=== PATIENT | male | born 1960 | race Caucasian/White ===

== ENCOUNTER → 2016-04-21 | Outpatient (CLI) | payer OTHER ==
--- NOTE | 2016-04-22 00:06 | DX ---
Lumbar Spine, Two Views History: Follow up fusion. Comparison: Lumbar spine March 11, 2016. Findings: Bilateral transpedicular screw and dixie fusion at L5-S1 is stable. The hardware is intact, without evidence of loosening. Intervertebral hardware at L5-S1 is stable. L5 laminectomy is again noted. Trace anterolisthesis of L5 on S1 is stable. Mild vertebral spondylosis throughout the visu alized spine is stable. No fracture is identified. Impression: Stable L5-S1 fusion.
== END ==
LOC: FIMAGING 14:35
PROVIDERS: ATTEND Physician Assistant
DX: Z09 Encounter for follow-up examination after completed treatment for conditions other than malignant neoplasm (principal); Z98.1 Arthrodesis status

== ENCOUNTER → 2018-01-09 | Outpatient (CLI) | payer OTHER | LOC: FIMAGING 18:27 | PROVIDERS: ATTEND Neurological Surgery | DX: M48.07 Spinal stenosis, lumbosacral region (principal) ==

== ENCOUNTER 2018-01-24 06:17 | Inpatient (IN) | payer OTHER ==
[2018-01-24] MEDS ORDERED: ceFAZolin 2 GM/DEXTROSE 100 ML IV ONE (06:28)
[2018-01-24] MEDS ORDERED: GABAPENTIN 300 MG CAP PO ONE (06:28)
[2018-01-24] MEDS ORDERED: ACETAMINOPHEN 500 MG TAB PO ONE (06:28)
[2018-01-24] MEDS ORDERED: LR 1,000 ML IV ONE (06:30)
[2018-01-24] MEDS ORDERED: LIDOCAINE 1% 2 ML INJ ID PRN (06:30)
--- NOTE | 2018-01-24 06:38 | PDHPUP ---
History & Physical Update H&P update statement: This history and physical update is based on an assessment of the patient which was completed after admission or registration (within 24 hours), but prior to the surgery/procedure. H&P update: H&P reviewed & patient examined, no change in patient's condition since H&P completed
[2018-01-24] MEDS ORDERED: LIDOCAINE 1% 2 ML INJ ONE (06:39)
[2018-01-24] MEDS ORDERED: BISACODYL 10 MG SUPP PR PRN (07:12)
[2018-01-24] MEDS ORDERED: LACTULOSE 20 GM/30 ML UDCUP PO PRN (07:12)
[2018-01-24] MEDS ORDERED: MAGNESIUM HYDROXIDE 30 ML UDCUP PO PRN (07:12)
[2018-01-24] MEDS ORDERED: POLYETHYLENE GLYCOL 3350 17 GM PKT PO PRN (07:12)
[2018-01-24] MEDS ORDERED: ONDANSETRON 4 MG/2 ML VIAL IVP PRN ×2 (07:12→10:24)
[2018-01-24] MEDS ORDERED: ONDANSETRON DISINTEGRATING 4 MG TAB PO PRN (07:12)
[2018-01-24] MEDS ORDERED: METHOCARBAMOL 750 MG TAB PO PRN (07:12)
[2018-01-24] MEDS ORDERED: diphenhydrAMINE 25 MG CAP PO PRN (07:12)
[2018-01-24] MEDS ORDERED: HYDROmorphONE/DILAUDID 1 MG/ML INJ IVP PRN (07:12)
[2018-01-24] MEDS ORDERED: NS 1,000 ML IV SCH (07:15)
[2018-01-24] MEDS ORDERED: THROMBIN (BOVINE) 5,000 UNIT VIAL TP ONE (07:38)
[2018-01-24] MEDS ORDERED: BUPIVACAINE 0.25% 30 ML SDV ONE (07:38)
[2018-01-24] MEDS ORDERED: CHLORHEXIDINE GLUC HIBICLENS 118 ML BTL TP ONE (07:38)
[2018-01-24] MEDS ORDERED: DEPO METHYLPREDNISOLONE 40 MG/ML SDV ONE (07:38)
[2018-01-24] MEDS ORDERED: BACITRACIN 50,000 UNITS/10 ML SYR IRR ONE (07:39)
[2018-01-24] MEDS ORDERED: EPINEPHrine 1 MG/ML INJ ONE (07:39)
[2018-01-24] MEDS ORDERED: MIDAZOLAM 2 MG/2 ML VIAL IVP ONE (08:04)
[2018-01-24] MEDS ORDERED: MIDAZOLAM 2 MG/2 ML VIAL ONE (08:06)
--- NOTE | 2018-01-24 08:09 | PDANEPAE ---
ANE History of Present Illness Lumbar hardware removal Laminectomy L4 5 ANE Past Medical History - Cardiovascular History Hx Hypertension: No Hx Arrhythmias: No Hx Chest Pain: No Hx Coronary Artery / Peripheral Vascular Disease: No Hx CHF / Valvular Disease: No Hx Palpitations: No - Pulmonary History Hx COPD: No Hx Asthma/Reactive Airway Disease: No Hx Recent Upper Respiratory Infection: No Hx Oxygen in Use at Home: No Hx Sleep Apnea: Yes Sleep Apnea Screening Result - Last Documented: Positive Pulmonary History Comment: CHARO USES CPAP INSTRUCTED TO BRING DOS - Neurologic History Hx Cerebrovascular Accident: No Hx Seizures: No Hx Dementia: No - Endocrine History Hx Diabetes: No Hypothyroid: No Hyperthyroid: No Obesity: mild - Renal History Hx Renal Disorders: No - Liver History Hx Hepatic Disorders: No - Neurological & Psychiatric Hx Hx Neurological and Psychiatric Disorders: Yes Neurological / Psychiatric History Comment: BELLS PALSY X3 - Cancer History Hx Cancer: No - Congenital Disorder History Hx Congenital Disorders: No - GI History Hx Gastrointestinal Disorders: Yes Gastrointestinal History Comment: CELIACS DISEASE - Other Health History Other Health History: RT HIP AND LEG - Chronic Pain History Chronic Pain: Yes (RT HIP AND LEG) - Surgical History Prior Surgeries: TFLI 01/2016. 2008 HERNIA SURGERY. 2011 CHOLECYSECTOMY ANE Review of Systems Review of Systems: - Exercise capacity METS (RN): 4 METS ANE Patient History - Allergies Allergies/Adverse Reactions: gluten Allergy (Verified 01/02/18 15:58) CELIAC DX - Home Medications Home Medications: Calcium/Magnesium/Vit D3 [Calcium 500 mg Tablet] 1 each PO DAILY 01/27/16 [Last Taken 01/17/18] Cholecalciferol (Vitamin D3) [Vitamin D3] 5,000 unit PO DAILY 01/27/16 [Last Taken 01/17/18] - NPO status NPO Since - Liquids (Date): 01/23/18 NPO Since - Liquids (Time): 23:00 NPO Since - Solids (Date): 01/23/18 NPO Since - Solids (Time): 22:30 - Anes Hx Anes Hx: no prior problems - Smoking Hx Smoking Status: Never smoked Marijuana use: No - Alcohol Use Alcohol Use: Occasionally - Family Anes Hx Family Anes Hx: none ANE Labs/Vital Signs - Vital Signs Blood Pressure: 137/84 Heart Rate: 73 Respiratory Rate: 10 O2 Sat (%): 94 Height: 180.34 cm Weight: 104.326 kg ANE Physical Exam - Airway Mallampati Score: Class 3 Mouth exam: normal dental/mouth exam - Pulmonary Pulmonary: no respiratory distress, no rales or rhonchi - Cardiovascular Cardiovascular: regular rate and rhythym, no murmur, rub, or gallop - ASA Status ASA Status: II ANE Anesthesia Plan Anesthesia Plan: general endotracheal anesthesia Specialized Airway: video laryngoscope
[2018-01-24] MEDS ORDERED: PROPOFOL/EMULSION 500 MG/50 ML BOTTLE IV ONE ×2 (08:12)
[2018-01-24] MEDS ORDERED: fentaNYL 250 MCG/5 ML INJ ONE (08:12)
[2018-01-24] MEDS ORDERED: LIDOCAINE 2% 5 ML SDV ONE (08:16)
[2018-01-24] MEDS ORDERED: ROCURONIUM 50 MG/5 ML VIAL ONE (08:16)
[2018-01-24] MEDS ORDERED: GLYCOPYRROLATE 0.2 MG/1 ML VIAL ONE (08:16)
[2018-01-24] MEDS ORDERED: SUCCINYLCHOLINE CHLORIDE 200 MG/10 ML SYR IVP ONE (08:19)
[2018-01-24] MEDS ORDERED: DEXAMETHASONE 4 MG/ML VIAL ONE (09:19)
[2018-01-24] MEDS ORDERED: fentaNYL 100 MCG/2 ML INJ ONE ×2 (09:25→10:32)
[2018-01-24] MEDS ORDERED: DIAZEPAM 5 MG/ML 1 ML SYR IVP PRN (10:24)
[2018-01-24] MEDS ORDERED: fentaNYL 100 MCG/2 ML INJ IVP PRN (10:24)
[2018-01-24] MEDS ORDERED: HYDROmorphONE/DILAUDID 2 MG/ML INJ IVP PRN (10:24)
[2018-01-24] MEDS ORDERED: oxyCODONE IR 5 MG TAB PO PRN (10:24)
[2018-01-24] MEDS ORDERED: HYDROCODONE/APAP 5/325 TAB PO PRN (10:24)
[2018-01-24] MEDS ORDERED: ALBUTEROL 3 ML DEYVIAL IH PRN (10:24)
[2018-01-24] MEDS ORDERED: PROMETHAZINE HCL 25 MG/ML INJ IVP PRN (10:24)
[2018-01-24] MEDS ORDERED: NALOXONE HCL 0.4 MG/ML INJ IVP PRN (10:24)
--- NOTE | 2018-01-24 11:26 | GOP ---
DATE OF OPERATION: 01/24/2018 SURGEON: Miguel Herrera MD NEUROSURGEON: Miguel Herrera MD CLAM GRADER: Tristin Burden PA-C PREOPERATIVE DIAGNOSIS: Probable painful hardware L5-S1, right L5 type pain (radicular pain), solid arthrodesis L5-S1. POSTOPERATIVE DIAGNOSIS: Probable painful hardware L5-S1, right L5 type pain (radicular pain), solid arthrodesis L5-S1. PROCEDURE PERFORMED: Removal of posterior nonsegmental instrumentation at L5-S1 and a right L4-5 hem ilaminotomy, medial facetectomy of the right lateral recess decompression of the right L5 nerve root (52673), microscope. FINDINGS: ESTIMATED BLOOD LOSS: 50 cc. INDICATIONS: The patient is a 57-year-old gentleman who underwent arthrodesis at L5-S1 with pedicle screws and intervertebral device, and he appeared to develop solid bony union there on CT scan. Ther e is no evidence of loosening of hardware, but he had persistent severe pain on the right-hand side t hat responded nicely to an L5 nerve root block. Blocking the hardware also gave him some relief and he wanted to have the hardware removed. It was unclear to me whether this would alleviate his discom fort or not. We did not see evidence of a complication at the surgery site or recurrent compression at the level of the surgery, but he did have some facet arthropathy at L4-5 and possibly some right l ateral recess stenosis. There was not overwhelming, but his response to injection of the 5 root was relatively compelling, and we offered him both hardware removal and adjacent segment decompression on the right-hand side only. The risk of continued symptoms was discussed. He knew this surgery may f ail to alleviate any of his discomfort and it would certainly exacerbate his low back pain for a whil e. He knew there too was some risk of removing the hardware equally to fracture of the fused segment and that while this is uncommon, it is a possibility. He knew there was risk of infection, spinal f luid leak, and he wanted to proceed despite the risks. We also discussed spinal cord stimulation of possible treatment option, which I thought was also a very reasonable option, but he wanted to try to avoid the implantation of another foreign body and it was his hope that removing the current foreign bodies present in the lumbar spine, he would get some relief. He wanted to proceed. DESCRIPTION OF PROCEDURE: Patient was taken to the operating room, placed in the supine position. G eneral anesthesia was begun. He was flipped prone onto the Girish table. Care was taken to pad all points of contact. His back was sterilely prepped and draped in usual fashion. A localizing x-ray was done, but he also had a prior midline incision. We opened the incision in the midline with a scalpel blade. The subcutaneous tissue was dissected us ing a plasma blade down to the fascia, and a subperiosteal dissection was made down the lamina of L4. We followed the L4 lamina out laterally toward the L4-5 facet and just lateral to this, we encounte red the L5 pedicle screws and then followed these down to the S1 pedicle screw. We removed the scar tissue on top of the set screws. Facet screws were removed, followed by the rods, and followed by ea ch of the screws. They were all in very solid bone. They were very tight. There was no evidence of hardware loosening. There was evidence of posterolateral bone mass at L5-S1. There was no evidence of motion between the 2 bones. He appeared to be fused to me. We shot an x-ray demonstrating the location of our planned laminotomy on the right at L4-5, introduce d the operating microscope, and under the scope, we drilled a right L4-5 laminotomy with a medial fac etectomy. We opened the ligamentum flavum and decompressed the lateral recess. The proce ss of L5 was mildly hypertrophic and it did appear to be protruding into the L5 nerve root, and we fo llowed this up above the L5 pedicle and decompressed the lateral thecal margin all the way up towards the neural foramen. We then followed the L5 nerve root inferiorly until it entered dense scar tissu e in the neural foramen, but we got a great decompression of the nerve all the way to the lower porti on of the L5 pedicle. There was no evidence of any additional compressive lesion on the right-hand s da. We irrigated with antibiotic saline solution and then closed the incision in multiple layers using Vi cryl sutures. A running PDS was placed in the skin, itself. The patient was reversed from anesthesi a, extubated, and transferred to recovery room in stable condition. COMPLICATIONS: None. /[id number]/MODL
--- NOTE | 2018-01-24 12:12 | POSTOPPROG ---
Post Op Note Date of Operation: 01/24/18 (LATE ENTRY-PT SEEN IN PACU) Surgeon: Chirag Herrera Shake Out Worker: ANTONI Burden Anesthesiologist: MD Kike Anesthesia: GET(General Endotracheal), Local (Specify) Pre-op Diagnosis: Painful hardware, lumbar stenosis, RLE pain Post-op Diagnosis: Painful hardware, lumbar stenosis, RLE pain Indication: as above Procedure: removal of hardware L5/S1, right L4/5 laminotomy Findings: none Inf/Abcess present in the surg proc area at time of surgery?: No Depth: Deep Incisional (Fascial) EBL: 50-100 Total fluids administered: see anesthesia record Complications: none
--- NOTE | 2018-01-24 12:15 | SOAPPROG ---
SOAP Progress Note Assessment/Plan: LATE ENTRY-PT SEEN IN PACU Post Op Visti: S: awake and alert, NAD. Pt with expected lower back pain O: AFVSS/PERRLA/EOMI no droop CN 2-12 grossly intact +lt touch 5/5 BUE/BLE = CDI A/P: 57 yo male that is s/p removal of hardware at L5/S1 with right L4/5 laminotomy -orders in place -pt states right leg is better -PT/OT pending -rx on chart -pt and updated -call with any questions or concerns Objective: Vital Signs Temp Pulse Resp BP Pulse Ox 36.2 C 73 16 112/66 95 01/24/18 11:44 01/24/18 08:09 01/24/18 11:41 01/24/18 11:41 01/24/18 11:41 01/23/18 01/24/18 01/25/18 05:59 05:59 05:59 Intake Total 1240 Balance 1240 ICD10 Worksheet Patient Problems: Problems Problem Status Onset Pain from implanted hardware Acute S/P hardware removal Acute Arthrodesis status Acute Lumbar radicular pain Acute Lumbar stenosis Acute - ICD10 Problem Qualifiers (1) Pain from implanted hardware (2) S/P hardware removal
--- NOTE | 2018-01-24 12:17 | PDMN ---
Medical Necessity Medical necessity: Pt changed to inpt as of 01/24/18 @ 12:00 as pt meets inpt criteria per MD order and [facility] [place] [facility], Removal of Posterior Spinal Instrumentation , L5-S1 hardware remval, CPT 53770 (Medicare inpt only list), Right L4/5 hemilaminotomy 27102 and medial facetectomy of R lateral recess decompression of R L5 nerve root, 27303, auth # [id number].
[2018-01-24] MEDS: SENNOSIDES/DOCUSATE SODIUM TAB PO SCH ×2 (12:34→20:43)
[2018-01-24] MEDS: FAMOTIDINE 20 MG TAB PO SCH ×2 (12:34→20:42)
[2018-01-24] MEDS: ACETAMINOPHEN 500 MG TAB PO SCH ×2 (13:06→20:42)
[2018-01-24] MEDS: oxyCODONE IR 5 MG TAB PO PRN (13:09)
[2018-01-24] MEDS: GABAPENTIN 300 MG CAP PO SCH ×2 (15:05→20:43)
[2018-01-24] MEDS: ceFAZolin 2 GM/DEXTROSE 100 ML IV SCH (16:44)
[2018-01-25] MEDS: ceFAZolin 2 GM/DEXTROSE 100 ML IV SCH (00:05)
[2018-01-25] MEDS: oxyCODONE IR 5 MG TAB PO PRN ×2 (05:46→10:04)
[2018-01-25] MEDS: ACETAMINOPHEN 500 MG TAB PO SCH (05:49)
[2018-01-25] MEDS: GABAPENTIN 300 MG CAP PO SCH (06:20)
--- NOTE | 2018-01-25 07:41 | NEUSURGPN ---
Assessment/Plan: A/P: 57 yo male that is s/p removal of hardware at L5/S1 with right L4/5 laminotomy POD#1 -PT/OT pending -Pain management -TEDs, SCDs, lovenox POD#3 -Dispo: likely dc to home today if does well overall -D/w Dr Herrera -call with any questions or concerns Subjective: Pt resting in bed, has some back pain and states that legs feel the same as pre op Objective: AAOx3 NAD VSS MAEx4 Motor 5/5 BLE Incision dressed +LT Urinary Catheter in Place: No - Physician Discussed Patient with : [facility] Physical Exam - Vitals, I&O, Labs I and O 01/24/18 01/25/18 01/26/18 05:59 05:59 05:59 Intake Total 2280 Balance 2280 Weight 104.326 kg Intake: Oral (ml) 780 IV Intake (ml) 1000 IV Infused (ml) 500 Ns 1,000 ml @ 100 mls/hr 400 IV CONT DELANEY Rx#: [id number] ceFAZolin 2 GM/DEXTROSE 100 100 ml @ 200 mls/hr IV Q8H DELANEY Rx#:[id number] Other: Output Comment Toilet unable to use urinal- did not measure Number of Voids Toilet 1 Vital Signs Temp Pulse Resp BP Pulse Ox 36.6 C 75 16 104/61 93 01/25/18 04:00 01/25/18 04:00 01/25/18 04:00 01/25/18 04:00 01/25/18 04:00 ICD10 Worksheet Patient Problems: Problems Problem Status Onset Pain from implanted hardware Acute S/P hardware removal Acute Arthrodesis status Acute Lumbar radicular pain Acute Lumbar stenosis Acute
[2018-01-25] MEDS: FAMOTIDINE 20 MG TAB PO SCH (09:14)
[2018-01-25] MEDS: SENNOSIDES/DOCUSATE SODIUM TAB PO SCH (09:14)
--- NOTE | 2018-01-25 10:26 | POSTANESTH ---
Post Anesthetic Evaluation Cardiovascular Status: Normal, Stable Respiratory Status: Normal, Stable Level of Consciousness/Mental Status: Can Participate in Eval Pain Control: Adequate, Prn Tx Ordered Nausea/Vomiting Control: Adequate, Prn Tx Ordered Complications Possibly Related to Anesthesia: None Noted (Episode of nausea yesterday. Resolved)
--- NOTE | 2018-01-25 10:47 | ASMTLACE ---
NAE Length of stay for Answers: 1 day current admission Acuity / Level of Answers: Yes Care: Did the patient have an inpatient admission? Comorbidities - select Answers: Opioid dependence all that apply / Chronic pain Other Notes: [place] Palsy, spinal stenosis # of Emergency department Answers: 0 visits in the last 6 months Score: 9 Date Signed: 01/25/2018 10:47 AM Electronically Signed By:Pat Melendez
[2018-01-25 11:25] VITALS: BP 118/71
--- NOTE | 2018-01-25 12:42 | ASDISCHSUM ---
Discharge Information Plan Status:Home with No Needs Medically Cleared to Leave:01/25/2018 Discharge Date:01/25/2018 12:30 PM CM D/C Disposition:Home, Routine, Self-Care ADT D/C Disposition:Home, Routine, Self-Care Projected Discharge Date:01/25/2018 12:30 PM Transportation at D/C:Family Discharge Delay Reason: Follow-Up Date:01/25/2018 12:30 PM Discharge Slot: Final Diagnosis:low back pain, painful hardware Placement Information Patient Contact Information Contact Name:MIHAELA Relationship: Address: City: [facility] Phone: [facility] Code: Email: Financial Information Financial Class:HMO and PPO Plans Primary Plan Desc:RUDY PPO POS HMO Primary Plan Number:[id number] Secondary Plan Desc: Secondary Plan Number: Assessment Information LACE LACE Length of stay for Answers: 1 day current admission Acuity / Level of Answers: Yes Care: Did the patient have an inpatient admission? Comorbidities - select Answers: Opioid dependence all that apply / Chronic pain Other Notes: [place] Palsy, spinal stenosis # of Emergency department Answers: 0 visits in the last 6 months Score: 9 Date Signed: 01/25/2018 10:47 AM Electronically Signed By:Pat Melendez Case Management Discharge Plan Note Case Management Discharge Discharge Order Complete? Answers: Yes Patient to Obtain Answers: via Family Medications Transportation Arranged Answers: Family/Friends Transport will Pick (Date 01/25/2018 11:00 AM & Time) Family Notified Answers: Yes Notes: pt called Discharge Comments Notes: Pt admitted 01/24 for laminectomy and hardware removal. Pt lives independently with . PT/OT recommending home independently. Pt comfortable with plan. Spoke with pt in the room. Pt's on the way to provide transporation and support. No CM needs noted at this time. CM available should needs change. Date Signed: 01/25/2018 12:41 PM Electronically Signed By:Pat Melendez Intervention Information
[2018-01-27] MEDS ORDERED: ENOXAPARIN 40 MG/0.4 ML SYR SC SCH (09:00)
== END 2018-01-25 12:30 | disposition home or self-care (01) | DRG 517 ==
LOC: F3N 06:17 → OBSVTOIN 12:00 → F3N 12:02
PROVIDERS: ADMIT Neurological Surgery; ATTEND Neurological Surgery
PROC: 0SP30AZ Removal of Interbody Fusion Device from Lumbosacral Joint, Open Approach (ICD-10-PCS; principal; 2018-01-24 08:15)
PROC: 4A1004G Monitoring of Central Nervous Electrical Activity, Intraoperative, Open Approach (ICD-10-PCS; principal; 2018-01-24 08:15)
PROC: 01NB0ZZ Release Lumbar Nerve, Open Approach (ICD-10-PCS; principal; 2018-01-24 08:15)
DX: T84.84XA Pain due to internal orthopedic prosthetic devices, implants and grafts, initial encounter (principal); Z98.1 Arthrodesis status; G47.33 Obstructive sleep apnea (adult) (pediatric)
CPT/HCPCS: 97161-GP; 97165-GO; J0171; J0330; J0690; J1030; J1100; J2250; J2405; J2704; J3010

== ENCOUNTER → 2018-02-15 | Outpatient (CLI) | payer OTHER | LOC: FIMAGING 15:02 | PROVIDERS: ATTEND Physical Medicine & Rehabilitation Neuromuscular Medicine | DX: M54.40 Lumbago with sciatica, unspecified side (principal) ==